=== PATIENT | female | born 1960 | race Caucasian/White ===

== ENCOUNTER 2017-05-05 07:04 | Emergency (ER) | payer BC ==
--- NOTE | 2017-05-05 07:39 | UC ---
Dizzy HPI HPI Summary: 56 y/o female, no significant PMH woke up this morning with dizziness, room spinning worse with head movement, better with rest, no fever, no chills, no cold / sinus sx no N/V/D/C - History Of Current Complaint Chief Complaint: UCGeneralIllness Stated Complaint: DIZZY VERTIGO Time Seen by Provider: 05/05/17 07:19 Hx Obtained From: Patient Hx Last Menstrual Period: 04/16/2013 ?: No Onset/Duration: Sudden Onset, Lasting Days - 1, Still Present Timing: Constant Severity Initially: Severe Severity Currently: Severe Character: Head Spinning, Room Spinning, Dizzy Aggravating Factor(s): Headache Associated Signs And Symptoms: Negative: Nausea, Vomiting, Diaphoresis, Tinnitus , Chest Pain, SOB, Palpitations, Unsteady Gait, Visual Changes, Decreased Oral Intake, Change In Medication, Change In Diet, OTC Medications - Allergies/Home Medications Allergies/Adverse Reactions: Allergies Allergy/AdvReac Type Severity Reaction Status Date / Time Sulfa Antibiotics Allergy Hives Verified 05/05/17 07:14 usp penicillin Allergy Itching Uncoded 05/05/17 07:14 PMH/Surg Hx/FS Hx/Imm Hx Previously Healthy: Yes - Surgical History Surgical History: Yes Surgery Procedure, Year, and Place: wisdom teeth. knee surgery - Family History Known Family History: Positive: None Negative: Diabetes - Social History Alcohol Use: Daily Alcohol Amount: 1 drink a night Substance Use Type: None Smoking Status (MU): Never Smoked Tobacco - Immunization History Most Recent Influenza Vaccination: NONE 2015 Most Recent Tetanus Shot: UTD Most Recent Pneumonia Vaccination: N/A Review of Systems Constitutional: Negative Skin: Negative Eyes: Negative ENT: Negative Respiratory: Negative Cardiovascular: Negative Gastrointestinal: Negative Neurological: Headache All Other Systems Reviewed And Are Negative: Yes Physical Exam Triage Information Reviewed: Yes Appearance: Well-Appearing, No Pain Distress, Well-Nourished Vital Signs: Initial Vital Signs Temp 96.6 F 05/05/17 07:16 Pulse 52 05/05/17 07:16 Resp 16 05/05/17 07:16 BP 122/62 05/05/17 07:16 Pulse Ox 99 05/05/17 07:16 Vital Signs Reviewed: Yes Eyes: Positive: Conjunctiva Clear ENT: Positive: Normal ENT inspection, Hearing grossly normal, Pharynx normal Neck exam: Normal Neck: Positive: Supple, Nontender, No Lymphadenopathy Respiratory Exam: Normal Respiratory: Positive: Chest non-tender, Lungs clear, Normal breath sounds, No respiratory distress Cardiovascular: Positive: RRR, No Murmur, Pulses Normal Musculoskeletal: Positive: Strength Intact, ROM Intact, No Edema Neurological: Positive: Alert Psychological Exam: Normal Skin Exam: Normal UC Physical Exam Vital Signs On Initial Exam: Initial Vitals Temp Pulse Resp BP Pulse Ox 96.6 F 52 16 122/62 99 05/05/17 07:16 05/05/17 07:16 05/05/17 07:16 05/05/17 07:16 05/05/17 07:16 - Neurological Exam Neurological: Normal, Sensory/Motor Intact, Alert, Oriented to Person Place, Time, CN Intact II-III, Reflexes Intact, Normal Gait, Speech Normal Dizzy Course/Dx - Differential Dx/Diagnosis Provider Diagnoses: VERTIGO Discharge - Discharge Plan Condition: Stable Disposition: HOME Prescriptions: Meclizine TAB* [Antivert 12.5 TAB*] 25 mg PO TID PRN #21 tab PRN Reason: Dizziness Patient Education Materials: Vertigo (ED) Additional Instructions: follow up with your pcp in one week if not better, may need PT if not better
[2017-05-05 07:40] VITALS: BP 122/62
== END 2017-05-05 07:47 | disposition home or self-care (01) ==
LOC: UCCORT 07:04
DX: R42 Dizziness and giddiness (principal); Z88.0 Allergy status to penicillin; Z88.2 Allergy status to sulfonamides
CPT/HCPCS: 99212; G0463